=== PATIENT | female | born 1970 | race Caucasian/White ===

== ENCOUNTER → 2016-09-27 | Day surgery (SDC) | payer OTHER ==
[~2016-09-27] MED LIST: LACTATED RINGER'S 1000 ML INJ 1,000 ML ONE; PROPOFOL 500 MG/50 ML BTL IV ONE
--- NOTE | 2016-09-27 09:22 | GIPROC ---
[facility] [address] [facility] [place], [address] EGD PROCEDURE REPORT EXAM DATE: 09/27/2016 PATIENT NAME: Cecelia Iglesias MR #: [id number] BIRTHDATE: 1970 ATTENDING: Oscar Alfaro MD ORDER #: [id number] [facility]ILLED [facility]SING FACILITY COUNSELOR: none STATUS: outpatient INDICATIONS: The patient is a 46 yr old female here for an EGD due to morbid obesity preoperative evaluation PROCEDURE PERFORMED: EGD w/ biopsy MEDICATIONS: None and Per Anesthesia. TOPICAL ANESTHETIC: none CONSENT: The patient understands the risks and benefits of the procedure and understands that these risks include, but are not limited to: sedation, allergic reaction, infection, perforation and/or bleeding. Alternative means of evaluation and treatment include, among others: physical exam, x-rays, and/or surgical intervention. The patient elects to proceed with this endoscopic procedure. medical equipment was checked for proper function. Hand hygiene and appropriate measures for infection prevention was taken. After the risks, benefits and alternatives of the procedure were thoroughly explained, Informed consent was verified, confirmed and timeout was successfully executed by the treatment team. The patient was anesthetized with topical anesthesia and the EC-[id number] ([id number]) endoscope was introduced through the mouth and advanced to the first portion of the duodenum. Retroflexed views revealed no abnormalities The gastroscope was then slowly withdrawn and removed. The endoscopy was otherwise normal. ADVERSE EVENTS: There were no complications. IMPRESSIONS: 1. Normal endoscopy otherwise 2. Retroflexed views revealed no abnormalities RECOMMENDATIONS: Await biopsy results. Biopsy results will not be ready for 7-10 days. If you don't hear from us in two weeks, call our office for biopsy results. PATIENT CONDITION: fair DISPOSITION: Home REPEAT EXAM: NONE Oscar Alfaro MD eSigned: Oscar Alfaro MD 09/27/2016 9:22 AM cc:
== END | disposition home or self-care (01) ==
LOC: ESDC 07:51
PROVIDERS: ATTEND Surgery
DX: Z01.818 Encounter for other preprocedural examination (principal); E66.01 Morbid (severe) obesity due to excess calories; Z72.4 Inappropriate diet and eating habits
CPT/HCPCS: 00740; 43239; 88305; 88312; J3010; J7120

== ENCOUNTER 2017-02-27 05:14 | Inpatient (IN) | payer OTHER ==
[~2017-02-27] VITALS: Ht 162.6 cm; Wt 156.0 kg
[2017-02-27] MEDS ORDERED: INSULIN HUMAN REGULAR 1,000 UNITS/10 ML VIAL SQ PRN (05:45)
[2017-02-27] MEDS ORDERED: METOPROLOL TARTRATE 25 MG TAB PO PRN (05:45)
[2017-02-27] MEDS ORDERED: ACETAMINOPHEN 1000 MG/100 ML VIAL IV SCH (05:45)
[2017-02-27] MEDS ORDERED: ONDANSETRON HCL 4 MG/2 ML VIAL IV PUSH SCH (05:45)
[2017-02-27] MEDS ORDERED: POVIDONE IODINE 5% (ANTISEPSIS KIT) 4 APPLICATIONS EACH NARE PRN (05:45)
[2017-02-27] MEDS ORDERED: SODIUM CHLORID 0.9% 500 ML IV PRN (05:45)
[2017-02-27] MEDS ORDERED: APREPITANT 40 MG CAP PO SCH (05:45)
[2017-02-27] MEDS ORDERED: CHLORHEXIDINE GLUCONATE 2 % 1 PACK (2 CLOTHS) TOPICAL PRN (05:45)
[2017-02-27] MEDS ORDERED: LACTATED RINGER'S 1000 ML IV PRN (05:45)
[2017-02-27] MEDS ORDERED: CLINDAMYCIN 900/NS 100 ML IV SCH ×2 (05:45)
[2017-02-27] MEDS ORDERED: SODIUM CHLORIDE 0.9% INJ 100 ML ONE (06:29)
[2017-02-27] MEDS ORDERED: SCOPOLAMINE 1.5 MG PATCH ONE (06:33)
[2017-02-27] MEDS ORDERED: SCOPOLAMINE 1.5 MG PATCH T-DERMAL SCH (06:45)
[2017-02-27] MEDS ORDERED: VITATAB56 PO (07:04)
[2017-02-27] MEDS ORDERED: VITA10002 PO (07:04)
[2017-02-27] MEDS ORDERED: MIDAZOLAM HCL 2 MG/2 ML VIAL ONE (09:06)
[2017-02-27] MEDS ORDERED: fentaNYL CITRATE 250 MCG/5 ML AMP ONE (09:07)
[2017-02-27] MEDS ORDERED: ONDANSETRON HCL 4 MG/2 ML VIAL ONE (09:07)
[2017-02-27] MEDS ORDERED: METHYLENE BLUE 10 MG/ML VIAL ONE (09:22)
[2017-02-27] MEDS ORDERED: BUPIVACAINE/EPINEPHRINE 0.25% 50 ML VIAL ONE (09:22)
[2017-02-27] MEDS ORDERED: Post-op Orders (for Pharmacy) MISC OTHER ONE (09:30)
[2017-02-27] MEDS ORDERED: HYDROmorphone HCL PCA 6 MG/30 ML IV SCH (09:30)
[2017-02-27] MEDS ORDERED: ENALAPRILAT 1.25 MG/ML VIAL IV PUSH PRN (09:30)
[2017-02-27] MEDS ORDERED: ONDANSETRON HCL 4 MG/2 ML VIAL IV PRN (09:30)
[2017-02-27] MEDS ORDERED: SODIUM CHLORIDE 0.9% FLUSH 10 ML FLUSH PRN (09:30)
[2017-02-27] MEDS ORDERED: NALOXONE HCL 0.4 MG/ML AMP IV PRN (09:30)
[2017-02-27] MEDS ORDERED: diphenhydrAMINE HCL ELIXIR 12.5 MG/5 ML CUP PO PRN (09:30)
[2017-02-27] MEDS ORDERED: ACETAMINOPHEN 325MG/HYDROcodone 7.5MG/15ML UDC PO PRN ×2 (09:30)
[2017-02-27] MEDS ORDERED: diphenhydrAMINE HCL 50 MG/ML VIAL IV PRN (09:30)
[2017-02-27] MEDS ORDERED: DO NOT ADM ANY ANTICOAGULANT DRUGS PRN (11:16)
[2017-02-27] MEDS: D5-1/2 NS + KCL 20 MEQ INJ 1,000 ML IV SCH ×3 (11:30→19:48)
[2017-02-27] MEDS: METOCLOPRAMIDE HCL 10 MG/2 ML VIAL IV PUSH SCH ×3 (11:45→19:53)
[2017-02-27] MEDS: VANCOMYCIN INJ 1,000 MG in SODIUM CHLOR 0.9% 250 ML INJ 250 ML IV SCH ×2 (12:45→23:08)
[2017-02-27] MEDS ORDERED: PROPOFOL 200 MG/20 ML AMP IV ONE (13:28)
[2017-02-27] MEDS ORDERED: NEOSTIGMINE 3 MG/3 ML SYR IV ONE (13:28)
[2017-02-27] MEDS ORDERED: PHENYLEPH/NS 1000 MCG/10 ML SYR IV ONE (13:28)
[2017-02-27] MEDS: ACETAMINOPHEN 1000 MG/100 ML 100 ML IV SCH ×2 (14:05→19:47)
[2017-02-27] MEDS: ENOXAPARIN SODIUM 40 MG/0.4 ML SYRINGE SQ SCH (15:00)
[2017-02-27 16:30] VITALS: BP 135/76; PULSE 77; RESP 17; TEMP 95.4; O2SAT 93
[2017-02-27] MEDS: PCA - TOTAL MG DILAUDID DELIVERED PER SHIFT OTHER SCH (19:48)
[2017-02-27] MEDS: SODIUM CHLORIDE 0.9% FLUSH 10 ML FLUSH IV FLUSH SCH (19:49)
[2017-02-27 20:00] VITALS: BP 129/73; PULSE 68; RESP 17; TEMP 96.1; O2SAT 97
[2017-02-28 00:36] VITALS: BP 121/60; PULSE 76; RESP 18; TEMP 97.1; O2SAT 95
[2017-02-28] MEDS: ACETAMINOPHEN 1000 MG/100 ML 100 ML IV SCH ×2 (01:50→08:05)
[2017-02-28 04:14] VITALS: BP 123/63; PULSE 68; RESP 17; TEMP 96.9; O2SAT 96
[2017-02-28] MEDS: PCA - TOTAL MG DILAUDID DELIVERED PER SHIFT OTHER SCH (04:39)
[2017-02-28] MEDS: METOCLOPRAMIDE HCL 10 MG/2 ML VIAL IV PUSH SCH (04:39)
[2017-02-28 07:32] LABS: AUTOMATED NEUTROPHIL # 9.3 TH/MM3 (1.8-7.7); BASOPHIL % 0.2 % (0.0-2.0); EOSINOPHIL % 0.2 % (0.0-4.0); HEMATOCRIT 41.4 % (35.0-46.0); HEMO FLAGS DIFF FINAL; LYMPH % 14.3 % (9.0-44.0); LYMPHOCYTE # 1.7 TH/MM3 (1.0-4.8); MEAN CELL VOLUME 90.3 FL (80.0-100.0); MEAN CORPUSCULAR HEMOGLOBIN 30.3 PG (27.0-34.0); MEAN CORPUSCULAR HGB CONC 33.5 % (32.0-36.0); MONO % 5.2 % (0.0-8.0); NEUT % 80.1 % (16.0-70.0); PLATELET COUNT 194 TH/MM3 (150-450); RED BLOOD COUNT 4.59 MIL/MM3 (4.00-5.30); RED CELL DISTRIBUTION WIDTH 13.6 % (11.6-17.2); WHITE BLOOD COUNT 11.7 TH/MM3 (4.0-11.0)
[2017-02-28 08:00] VITALS: BP 133/72; PULSE 70; RESP 16; TEMP 97.1; O2SAT 97
[2017-02-28 08:02] LABS: BICARBONATE 28.1 MEQ/L (21.0-32.0); MAGNESIUM 2.1 MG/DL (1.5-2.5); POTASSIUM 3.7 MEQ/L (3.5-5.1)
[2017-02-28] MEDS: SODIUM CHLORIDE 0.9% FLUSH 10 ML FLUSH IV FLUSH SCH (08:05)
[2017-02-28] MEDS: D5-1/2 NS + KCL 20 MEQ INJ 1,000 ML IV SCH ×2 (08:08→15:03)
[2017-02-28] MEDS ORDERED: PANTOPRAZOLE SOD 40 MG DELAYED RELEASE TAB PO SCH (09:00)
[2017-02-28] MEDS ORDERED: METOCLOPRAMIDE HCL 10 MG/2 ML VIAL IV PUSH PRN (09:30)
[2017-02-28 12:00] VITALS: BP 159/80; PULSE 69; RESP 18; TEMP 97.2; O2SAT 99
--- NOTE | 2017-02-28 12:19 | HHI.PR ---
Subjective Subjective Notes Sitting up in chair Tolerating PO fluids Still using [employer] ARCHITECT Objective Vitals/I&O Vital Signs Date Time Temp Pulse Resp B/P (MAP) Pulse Ox O2 Delivery O2 Flow Rate FiO2 02/28/17 08:00 97.1 70 16 133/72 (92) 97 02/28/17 06:20 21 02/27/17 16:00 Nasal Cannula 3 Labs Laboratory Tests Test 02/28/17 04:36 White Blood Count 11.7 Red Blood Count 4.59 Hemoglobin 13.9 Hematocrit 41.4 Mean Corpuscular Volume 90.3 Mean Corpuscular Hemoglobin 30.3 Mean Corpuscular Hemoglobin Concent 33.5 Red Cell Distribution Width 13.6 Platelet Count 194 Mean Platelet Volume 8.2 Neutrophils (%) (Auto) 80.1 Lymphocytes (%) (Auto) 14.3 Monocytes (%) (Auto) 5.2 Eosinophils (%) (Auto) 0.2 Basophils (%) (Auto) 0.2 Neutrophils # (Auto) 9.3 Lymphocytes # (Auto) 1.7 Monocytes # (Auto) 0.6 Eosinophils # (Auto) 0.0 Basophils # (Auto) 0.0 CBC Comment DIFF FINAL Differential Comment Blood Urea Nitrogen 8 Creatinine 0.57 Random Glucose 108 Calcium Level 8.4 Magnesium Level 2.1 Sodium Level 136 Potassium Level 3.7 Chloride Level 101 Carbon Dioxide Level 28.1 Anion Gap 7 Estimat Glomerular Filtration Rate 114 Cardiovascular: Regular Lungs: Clear Abdomen: Post-op tenderness Extremities: Perfused Wound Wound : Wound Location: Abdomen Appearance: Clean & Dry A/P Assessment and Plan 46yo F POD#1 laparoscopic VSG -Transition to oral pain control -Increase walking to at least QID -Continue to increase fluids as tolerated Discharge Planning D/C home either later tonight or tomorrow Attending Statement patient seen at bedside c/o incisional pain but doing well will check this afternoon for possible dc today tolerating liquids Attestation The exam, history, and the medical decision-making described in the above note were completed with the assistance of the mid-level provider. I reviewed and agree with the findings presented. I attest that I had a [id number] encounter with the patient on the same day, and personally performed and documented my assessment and findings in the medical record. Nivia Galindo ANALYTICAL CLERK Feb 28, 2017 12:19 Oscar Alfaro MD Mar 09, 2017 18:58
[2017-02-28 13:42] VITALS: BP 99/55; PULSE 84; RESP 18; TEMP 97.6; O2SAT 97
[2017-02-28] MEDS: ENOXAPARIN SODIUM 40 MG/0.4 ML SYRINGE SQ SCH (15:03)
[2017-02-28 16:00] VITALS: BP 122/61; PULSE 67; RESP 15; TEMP 98; O2SAT 96
--- NOTE | 2017-03-01 23:19 | MP ---
cc: FENG ALFARO MD DATE OF SURGERY 02/27/2017 PREOPERATIVE DIAGNOSIS Morbid obesity with BMI of 61, multiple comorbidities POSTOPERATIVE DIAGNOSIS Morbid obesity with BMI of 61, multiple comorbidities PROCEDURE PERFORMED Laparoscopic sleeve gastrectomy. SURGEON Dr. Holland Alfaro CERAMIC CAPACITOR PROCESSOR Dr. Hui Novak needed due to the complexity of the laparoscopic case Dr. Novak aided assisted with retraction and camera control. ANESTHESIA GETA. IV FLUIDS See anesthesia sheet ESTIMATED BLOOD LOSS 10 mL. DRAINS None COMPLICATIONS None. WOUND CLASSIFICATION Clean contaminated FINDINGS No leak on methylene blue instillation. Noted to be several adhesions and a large infraumbilical incarcerated non-obstructive hernia. SPECIMEN None INDICATION The patient is a 46-year-old female who presents with morbid obesity, BMI of 61, multiple attempts at weight loss without success. Decision was made and discussed with the patient regarding bariatric surgery and laparoscopic sleeve gastrectomy possible two stage duodenal switch. PROCEDURE IN DETAIL The patient taken to the operative suite, placed in supine position. She was prepped and draped in usual sterile fashion after induction of general endotracheal anesthesia. Brief time-out done stating correct patient, procedure and surgical site, all were in agreement with this. Attention was directed to the xiphoid 15 cm distal to this local anesthetic placed at midline. 5 mm incision was made after placement of 5 mm trocar under direct visualization with OptiView port. Pneumoperitoneum obtained at 15 mm. The patient was placed in reverse Trendelenburg and airplaned to the right. A right upper quadrant 5 mm trocar was placed for liver traction to retract the right lobe of the liver. Several other ports were placed including a 15 mm right lower quadrant port followed by two left lower quadrant and lateral quadrant port 5 mm. The vascular and greater curve of the stomach was taken down with the harmonic scalpel 5 cm proximal from the pylorus carried all the way up to the angle of his. Prior to this again noted several adhesions taken down with a harmonic scalpel at appropriately place port sites. The greater curve was continued up to the angle of his. Next, a 36-[place] Visigi bougie was placed under direct visualization. Placed at suction and use as a calibration device to help assist and fashion our sleeve gastrectomy. The sleeve gastrectomy was carried out 5 cm proximal to the pylorus all the way to the angle of his. This excised approximately 80% of the stomach. This was done using a [employer] flex Endo-HANSA stapler black load followed by green and gold loads. The tiffanie were enforced with seam guard. A distance of 2 cm from the angle of his to ensure staple line was noted. A distance 1 cm from GE junction staple line was also maintained. The bougie was instilled with methylene blue without evidence of leaking. The mesentery was then re-sutured using a 2-0 Stratifix suture. Evoseal was then placed to assist with hemostasis. The excised stomach was removed from the peritoneal cavity through the 15-mm trocar. A suture passer was used for a 0 Vicryl to close the 15-mm port site. All port sites removed. Pneumoperitoneum removed and the other ports were closed with 4-0 Monocryl subcuticular sutures. Sterile dressings placed. All lap and instrument counts were correct at the end of the procedure. The patient tolerated the procedure well. There was no operative complication. The patient was extubated and taken to the PACU. MD CELESTINO Palumbo/ /8:27 PM /11:03 PM VINAYAK
== END 2017-02-28 19:18 | disposition home or self-care (01) | DRG 621 ==
LOC: HSDI 05:14 → N07A 16:25
PROVIDERS: ADMIT Surgery; ATTEND Surgery
PROC: 0DB64Z3 Excision of Stomach, Percutaneous Endoscopic Approach, Vertical (ICD-10-PCS; principal; 2017-02-27 09:05)
DX: E66.01 Morbid (severe) obesity due to excess calories (principal); E78.5 Hyperlipidemia, unspecified; Z68.43 Body mass index [BMI] 50.0-59.9, adult; Z87.891 Personal history of nicotine dependence
CPT/HCPCS: 80048; 83735; 85025; 94150; J0131; J1170; J1650; J2250; J2370; J2405; J2710; J2765; J3010; J3370; J3480; J7050; J8501